=== PATIENT | male | born 1970 | race Hispanic/Latino ===

== ENCOUNTER 2018-02-27 16:03 | Emergency (ER) | payer SELFPAY ==
[~2018-02-27] VITALS: Ht 180.3 cm; Wt 101.3 kg
[2018-02-27 20:51] VITALS: BP 161/97
== END 2018-02-27 20:52 | disposition home or self-care (01) ==
LOC: EME 16:03
DX: S72.92XA Unspecified fracture of left femur, initial encounter for closed fracture (principal); W17.89XA Other fall from one level to another, initial encounter; Y93.H3 Activity, building and construction; F17.200 Nicotine dependence, unspecified, uncomplicated
CPT/HCPCS: 73564; 99281; 99284